=== PATIENT | male | born 1980 | race Caucasian/White ===

== ENCOUNTER 2016-06-12 11:23 | Emergency (ER) | payer SELFPAY ==
[2016-06-12 11:24] VITALS: BP 126/76; PULSE 83; RESP 12; TEMP 97.6; O2SAT 96
--- NOTE | 2016-06-12 11:58 | PD ---
HPI Chief Complaint: GI Complaint Time Seen by Provider: 11:57 Travel History International Travel<30 days: No Contact w/Intl Traveler<30days: No Traveled to known affect area: No History of Present Illness HPI 35-year-old male who states he has no significant medical history, presents to emergency department for evaluation of eh red blood in stool. Patient states that it has happened on and off but yesterday when he had a bowel movement the water was completely red. Denies any trauma. States that he does not have anal intercourse. No history of hemorrhoids. He has not yet had a bowel movement today. Has had some lower abdominal pain as well as epigastric pain. He has felt nauseous without vomiting. Chills without fever. No other recent illnesses, fever, or chills. He has no other symptoms to report. [facility] Past Medical History Medical History: Denies Significant Hx Social History Alcohol Use: No Tobacco Use: No Substance Use: No Allergies-Medications (Allergen,Severity, Reaction): Coded Allergies: Codeine (Verified Allergy, Severe, Anaphylaxis, 06/12/16) Reported Meds & Prescriptions Reported Meds & Active Scripts Active Zantac (Ranitidine HCl) 150 Mg Tab 150 Mg PO BID Review of Systems Except as stated in HPI: all other systems reviewed are Neg Physical Exam Narrative GENERAL: Well-nourished male patient, in no acute distress SKIN: Warm and dry. HEAD: Atraumatic. Normocephalic. EYES: Pupils equal and round. No scleral icterus. No injection or drainage. ENT: No nasal bleeding or discharge. Mucous membranes pink and moist. NECK: Trachea midline. No JVD. CARDIOVASCULAR: Regular rate and rhythm. No murmur appreciated. RESPIRATORY: No accessory muscle use. Clear to auscultation. Breath sounds equal bilaterally. GASTROINTESTINAL: Abdomen soft, nondistended. Slight epigastric and periumbilical tenderness to palpation. Hepatic and splenic margins not palpable. RECTAL EXAM: No masses or tenderness, stool is brown. MUSCULOSKELETAL: No obvious deformities. No clubbing. No cyanosis. No edema. NEUROLOGICAL: Awake and alert. No obvious cranial nerve deficits. Motor grossly within normal limits. Normal speech. PSYCHIATRIC: Appropriate mood and affect; insight and judgment normal. Data Data Last Documented VS Vital Signs Date Time Temp Pulse Resp B/P Pulse Ox O2 Delivery O2 Flow Rate FiO2 06/12/16 13:34 58 18 127/78 98 Room Air 06/12/16 11:24 97.6 Orders Complete Blood Count With Diff (06/12/16 11:56) Comprehensive Metabolic Panel (06/12/16 11:56) Lipase (06/12/16 11:56) Prothrombin Time / Inr (Pt) (06/12/16 11:56) Act Partial Throm Time (Ptt) (06/12/16 11:56) Urinalysis - C+S If Indicated (06/12/16 11:56) Electrocardiogram (06/12/16 11:56) Type And Screen (06/12/16 11:56) Troponin I (06/12/16 13:27) Labs Laboratory Tests Test 06/12/16 12:05 White Blood Count 10.7 TH/MM3 Red Blood Count 5.23 MIL/MM3 Hemoglobin 16.1 GM/DL Hematocrit 46.2 % Mean Corpuscular Volume 88.2 FL Mean Corpuscular Hemoglobin 30.7 PG Mean Corpuscular Hemoglobin 34.8 % Concent Red Cell Distribution Width 13.7 % Platelet Count 181 TH/MM3 Mean Platelet Volume 8.4 FL Neutrophils (%) (Auto) 62.2 % Lymphocytes (%) (Auto) 28.4 % Monocytes (%) (Auto) 5.8 % Eosinophils (%) (Auto) 2.9 % Basophils (%) (Auto) 0.7 % Neutrophils # (Auto) 6.6 TH/MM3 Lymphocytes # (Auto) 3.0 TH/MM3 Monocytes # (Auto) 0.6 TH/MM3 Eosinophils # (Auto) 0.3 TH/MM3 Basophils # (Auto) 0.1 TH/MM3 CBC Comment DIFF FINAL Differential Comment Prothrombin Time 10.7 SEC Prothromb Time International 1.0 RATIO Ratio Activated Partial 28.8 SEC Thromboplast Time Urine Color YELLOW Urine Turbidity HAZY Urine pH 5.5 Urine Specific [place] 1.010 Urine Protein TRACE mg/dL Urine Glucose (UA) NEG mg/dL Urine Ketones NEG mg/dL Urine Occult Blood NEG Urine Nitrite NEG Urine Bilirubin NEG Urine Urobilinogen LESS THAN 2.0 MG/DL Urine Leukocyte Esterase NEG Urine RBC LESS THAN 1 /hpf Urine WBC 1 /hpf Urine Squamous Epithelial <1 /hpf Cells Urine Bacteria RARE /hpf Urine Mucus FEW /lpf Urine Sperm RARE Microscopic Urinalysis Comment CULT NOT INDICATED Sodium Level 139 MEQ/L Potassium Level 4.2 MEQ/L Chloride Level 102 MEQ/L Carbon Dioxide Level 28.5 MEQ/L Anion Gap 9 MEQ/L Blood Urea Nitrogen 13 MG/DL Creatinine 1.13 MG/DL Estimat Glomerular Filtration 75 ML/MIN Rate Random Glucose 80 MG/DL Calcium Level 8.9 MG/DL Total Bilirubin 0.4 MG/DL Aspartate Amino Transf 48 U/L (AST/SGOT) Alanine Aminotransferase 65 U/L (ALT/SGPT) Alkaline Phosphatase 104 U/L Troponin I LESS THAN 0.02 NG/ML Total Protein 7.4 GM/DL Albumin 4.1 GM/DL Lipase 170 U/L Blood Type A NEGATIVE Antibody Screen NEGATIVE Blood Bank Comment MDM Medical Decision Making Medical Screen Exam Complete: Yes Emergency Medical Condition: Yes Medical Record Reviewed: Yes Differential Diagnosis Hemorrhoid bleeding versus fistula versus fissure versus GI bleed Narrative Course 35-year-old male presents to emergency department for evaluation. Patient appears without distress. Workup was initiated in triage. Once a medical bed becomes available, patient will be transferred and Oralia seemed without provider. Heme a prompt was complete in triage. Stool is brown with streaks of positive identified on the exam [facility] Point of Care Internal Pos. & Neg. Controls: Passed Fecal Specimen Occult Blood: Positive Scripts Ranitidine (Zantac)150 Mg Apq490 Mg PO BID #60 TAB Ref 0 Prov:Akosua Harris 06/12/16 Condition: Stable Samantha Trammell Jun 12, 2016 11:57
[2016-06-12 12:28] LABS: AUTOMATED NEUTROPHIL # 6.6 TH/MM3 (1.8-7.7); BASOPHIL # 0.1 TH/MM3 (0-0.2); BASOPHIL % 0.7 % (0.0-2.0); EOSINOPHIL # 0.3 TH/MM3 (0-0.4); EOSINOPHIL % 2.9 % (0.0-4.0); HEMATOCRIT 46.2 % (39.0-51.0); HEMO FLAGS DIFF FINAL; LYMPH % 28.4 % (9.0-44.0); MEAN CELL VOLUME 88.2 FL (80.0-100.0); MEAN CORPUSCULAR HEMOGLOBIN 30.7 PG (27.0-34.0); MEAN CORPUSCULAR HGB CONC 34.8 % (32.0-36.0); MONO % 5.8 % (0.0-8.0); NEUT % 62.2 % (16.0-70.0); PLATELET COUNT 181 TH/MM3 (150-450); RED BLOOD COUNT 5.23 MIL/MM3 (4.50-5.90); RED CELL DISTRIBUTION WIDTH 13.7 % (11.6-17.2); WHITE BLOOD COUNT 10.7 TH/MM3 (4.0-11.0)
[2016-06-12 12:35] LABS: BACTERIA, URINE RARE /hpf; BLOOD, URINE NEG (NEG); GLUCOSE,URINE NEG (NEG); KETONE, URINE NEG (NEG); MUCUS URINE FEW /lpf (OCC); NITRITE,URINE NEG (NEG); PH, URINE 5.5 (5.0-8.5); SQUAMOUS EPITHELIAL CELL URINE <1 /hpf (0-5); URINE COLOR YELLOW (YELLW/STRAW)
[2016-06-12 12:36] LABS: COMMENT (UR) CULT NOT INDICATED; CULTURE IF INDICATED CULT NOT INDICATED
[2016-06-12 12:39] LABS: APTT (PATIENT) 28.8 SEC (24.3-30.1); PROTHROMBIN TIME - PATIENT 10.7 SEC (9.8-11.6)
--- NOTE | 2016-06-12 12:42 | PD ---
Physical Exam Date Seen by Provider: Jun 12, 2016 Time Seen by Provider: 12:38 Narrative 35-year-old male presents to the emergency department for evaluation of bright red blood in history. Patient was initially seen in triage and was transferred to medical pot. Patient reports bright red blood in his stool for 2 weeks. He states this started with a streak on his toilet taper when he wipes. However, states that yesterday the full was bright red after having a bowel movement. He has not had a bowel movement since. Patient does report mild epigastric tenderness. He reports a history of inguinal hernia surgery, but no other abdominal surgeries or chronic problems. Patient denies any fevers. He does state that he has vomited for the past 3 days. He states he ate 2 bowls of cereal this morning was able to keep it down without difficulty. However, he then ate a red velvet Inspector Plating cake and vomited out the hose sprayer take. He denies any chronic medical problems or taking any prescribed medications. Rectal exam was done in triage. GENERAL: Well-developed well-nourished male patient, ambulatory. Afebrile. SKIN: Warm and dry. HEAD: Normocephalic. Atraumatic. EYES: No scleral icterus. No injection or drainage. NECK: Supple, trachea midline. No JVD or lymphadenopathy. CARDIOVASCULAR: Regular rate and rhythm without murmurs, gallops, or rubs. RESPIRATORY: Breath sounds equal bilaterally. No accessory muscle use. Lungs sounds are clear to auscultation. GASTROINTESTINAL: Abdomen soft and nondistended. Mild epigastric tenderness to palpation. MUSCULOSKELETAL: No cyanosis, or edema. BACK: Nontender without obvious deformity. No CVA tenderness. Data Data Last Documented VS Vital Signs Date Time Temp Pulse Resp B/P Pulse Ox O2 Delivery O2 Flow Rate FiO2 06/12/16 13:34 58 18 127/78 98 Room Air 06/12/16 11:24 97.6 Orders Complete Blood Count With Diff (06/12/16 11:56) Comprehensive Metabolic Panel (06/12/16 11:56) Lipase (06/12/16 11:56) Prothrombin Time / Inr (Pt) (06/12/16 11:56) Act Partial Throm Time (Ptt) (06/12/16 11:56) Urinalysis - C+S If Indicated (06/12/16 11:56) Electrocardiogram (06/12/16 11:56) Type And Screen (06/12/16 11:56) Troponin I (06/12/16 13:27) Labs Laboratory Tests Test 06/12/16 12:05 White Blood Count 10.7 TH/MM3 Red Blood Count 5.23 MIL/MM3 Hemoglobin 16.1 GM/DL Hematocrit 46.2 % Mean Corpuscular Volume 88.2 FL Mean Corpuscular Hemoglobin 30.7 PG Mean Corpuscular Hemoglobin 34.8 % Concent Red Cell Distribution Width 13.7 % Platelet Count 181 TH/MM3 Mean Platelet Volume 8.4 FL Neutrophils (%) (Auto) 62.2 % Lymphocytes (%) (Auto) 28.4 % Monocytes (%) (Auto) 5.8 % Eosinophils (%) (Auto) 2.9 % Basophils (%) (Auto) 0.7 % Neutrophils # (Auto) 6.6 TH/MM3 Lymphocytes # (Auto) 3.0 TH/MM3 Monocytes # (Auto) 0.6 TH/MM3 Eosinophils # (Auto) 0.3 TH/MM3 Basophils # (Auto) 0.1 TH/MM3 CBC Comment DIFF FINAL Differential Comment Prothrombin Time 10.7 SEC Prothromb Time International 1.0 RATIO Ratio Activated Partial 28.8 SEC Thromboplast Time Urine Color YELLOW Urine Turbidity HAZY Urine pH 5.5 Urine Specific [place] 1.010 Urine Protein TRACE mg/dL Urine Glucose (UA) NEG mg/dL Urine Ketones NEG mg/dL Urine Occult Blood NEG Urine Nitrite NEG Urine Bilirubin NEG Urine Urobilinogen LESS THAN 2.0 MG/DL Urine Leukocyte Esterase NEG Urine RBC LESS THAN 1 /hpf Urine WBC 1 /hpf Urine Squamous Epithelial <1 /hpf Cells Urine Bacteria RARE /hpf Urine Mucus FEW /lpf Urine Sperm RARE Microscopic Urinalysis Comment CULT NOT INDICATED Sodium Level 139 MEQ/L Potassium Level 4.2 MEQ/L Chloride Level 102 MEQ/L Carbon Dioxide Level 28.5 MEQ/L Anion Gap 9 MEQ/L Blood Urea Nitrogen 13 MG/DL Creatinine 1.13 MG/DL Estimat Glomerular Filtration 75 ML/MIN Rate Random Glucose 80 MG/DL Calcium Level 8.9 MG/DL Total Bilirubin 0.4 MG/DL Aspartate Amino Transf 48 U/L (AST/SGOT) Alanine Aminotransferase 65 U/L (ALT/SGPT) Alkaline Phosphatase 104 U/L Troponin I LESS THAN 0.02 NG/ML Total Protein 7.4 GM/DL Albumin 4.1 GM/DL Lipase 170 U/L Blood Type A NEGATIVE Antibody Screen NEGATIVE Blood Bank Comment [facility] Medical Record Reviewed: Yes Supervised Visit with NEGRO: No Differential Diagnosis Hemorrhoids versus lower GI bleed versus pancreatitis Narrative Course 35-year-old male presents to the emergency department for evaluation of right blood per his rectum for 2 weeks, worsening yesterday. Patient appears well on exam. EKG is ordered and pending. CBC, CMP, lipase, PTT, PTT/INR, troponin UA are ordered and pending. EKG shows sinus bradycardia, heart rate 55. This was read and interpreted by my attending physician, Dr. Chou, and appears to have early repolarizationn. CBC is completely unremarkable with a hemoglobin of 16.1, hematocrit 46.2. Coags are unremarkable. UA shows no evidence of acute infection. CMP shows no acute abnormality. Lipase is 170. Troponin is less than 0.02. Physical exam and laboratory findings are reassuring. Patient is instructed to follow-up with a crop quantitative geneticist for possible colonoscopy. Patient is agreeable. Patient will be discharged with a prescription for Zantac. Diagnosis Primary Impression: Bright red blood per rectum Referrals: Cause Analyst call for appointment Patient Instructions: General Instructions, Rectal Bleeding (ED) Departure Forms: Tests/Procedures, Work Release Enter return to work date: Jun 14, 2016 Additional Instruction: Follow-up with a crop quantitative geneticist. Take Zantac as directed. Return to the emergency department for any acute worsening of symptoms. Med/Other Pt SpecificInfo: Prescription(s) given Scripts Ranitidine (Zantac)150 Mg Pcn521 Mg PO BID #60 TAB Ref 0 Prov:Akosua Harris 06/12/16 Disposition: 01 DISCHARGE HOME Condition: Stable Akosua Harris Jun 12, 2016 12:42
[2016-06-12 13:11] LABS: ALKALINE PHOSPHATASE 104 U/L (45-117); ALT (GPT) 65 U/L (12-78); ANION GAP 9 MEQ/L (5-15); BICARBONATE 28.5 MEQ/L (21.0-32.0); BLOOD UREA NITROGEN 13 MG/DL (7-18); CHLORIDE 102 MEQ/L (98-107); GLOMERULAR FILTRATION RATE 75 ML/MIN (>89); SODIUM (NA) 139 MEQ/L (136-145); TOTAL BILIRUBIN ADULT 0.4 MG/DL (0.2-1.0)
[2016-06-12 13:17] LABS: AST (GOT) 48 U/L (15-37); POTASSIUM 4.2 MEQ/L (3.5-5.1)
[2016-06-12 13:34] VITALS: BP 127/78; PULSE 58; RESP 18; O2SAT 98
[2016-06-12] MEDS ORDERED: ZANT150T2 PO (14:53)
--- NOTE | 2016-06-13 15:33 | EKG ---
Date Performed: 06/12/2016 Time Performed: 13:19:59 PTAGE: 35 years EKG: SINUS BRADYCARDIA ST ELEVATION, CONSIDER INFERIOR INJURY ACUTE MA NO PREVIOUS TRACING DOCTOR: Van Irby Interpretating Date/Time 06/13/2016 15:32:18
== END 2016-06-12 15:39 | disposition home or self-care (01) ==
LOC: NEPA 11:23
DX: K62.5 Hemorrhage of anus and rectum (principal); R00.1 Bradycardia, unspecified; R10.13 Epigastric pain
CPT/HCPCS: 80053; 81001; 83690; 84484; 85025; 85610; 85730; 86850; 86900; 86901; 93005

== ENCOUNTER 2016-06-14 12:59 | Emergency (ER) | payer SELFPAY ==
[~2016-06-14] VITALS: Ht 172.7 cm; Wt 84.0 kg
[~2016-06-14 12:59] MED LIST: ZANT150T2 PO
[2016-06-14 13:01] VITALS: BP 129/71; PULSE 78; RESP 20; TEMP 97.9; O2SAT 97
--- NOTE | 2016-06-14 14:27 | PD ---
HPI Chief Complaint: GI Complaint Time Seen by Provider: 14:26 Travel History International Travel<30 days: No Contact w/Intl Traveler<30days: No Traveled to known affect area: No History of Present Illness HPI 35-year-old male presents to the ED for evaluation of episodic nausea and vomiting and rectal bleeding. Patient was seen in this ED with same complaint 2 days ago. At that time he was prescribed Zantac, instructed to follow up with the slot operations manager. The patient states that he has been unable to afford the Zantac and had an episode nausea and nonbloody vomiting this morning. He also requests a work note, stating that he has to miss work in order to coordinate his care. PFSH Past Surgical History Abdominal Surgery: Yes (inguinal hernia sx) Social History Alcohol Use: No Tobacco Use: No Substance Use: No Allergies-Medications (Allergen,Severity, Reaction): Coded Allergies: Codeine (Verified Allergy, Severe, Anaphylaxis, 06/12/16) Reported Meds & Prescriptions Reported Meds & Active Scripts Active Zantac (Ranitidine HCl) 150 Mg Tab 150 Mg PO BID Review of Systems Except as stated in HPI: all other systems reviewed are Neg Physical Exam Narrative GENERAL: Well-nourished, well-developed white male in no acute distress. SKIN: Warm and dry. HEAD: Normocephalic. EYES: No scleral icterus. No injection or drainage. NECK: Supple, trachea midline. No JVD or lymphadenopathy. CARDIOVASCULAR: Regular rate and rhythm without murmurs, gallops, or rubs. RESPIRATORY: Breath sounds clear and equal bilaterally. No accessory muscle use. GASTROINTESTINAL: Abdomen soft, nondistended. Mild epigastric tenderness. Active bowel sounds. MUSCULOSKELETAL: No cyanosis, or edema. Patient is ambulatory, moves easily from sitting to lying down positions. BACK: Nontender without obvious deformity. No CVA tenderness. Data Data Last Documented VS Vital Signs Date Time Temp Pulse Resp B/P Pulse Ox O2 Delivery O2 Flow Rate FiO2 06/14/16 13:01 97.9 78 20 129/71 97 Room Air Orders Ranitidine (Zantac) (06/14/16 14:45) Famotidine (Pepcid) (06/14/16 15:15) MDM Medical Decision Making Medical Screen Exam Complete: Yes Emergency Medical Condition: Yes Differential Diagnosis GERD versus hemorrhoids versus noncompliance versus other Narrative Course 35-year-old male presents to the ED for evaluation of episodic nausea and vomiting and rectal bleeding. Patient was seen in this ED with same complaint 2 days ago. At that time he was prescribed Zantac, instructed to follow up with the slot operations manager. The patient states that he has been unable to afford the Zantac and had an episode nausea and nonbloody vomiting this morning. He also requests a work note, stating that he has to miss work in order to coordinate his care. Vitals reviewed. Physical exam reveals a nontoxic-appearing white male in no acute distress. Mild tenderness to palpation in the epigastric region, physical exam is otherwise unremarkable. Review of the records reveals patient had a full workup 2 days ago which revealed no emergent condition. Patient is been noncompliant with his medications. He was administered a dose of Pepcid. Previous discharge instructions were reinforced. He is instructed to follow-up with the slot operations manager. He indicated understanding of the instructions. He is stable and discharged home. Diagnosis Primary Impression: Noncompliance Additional Impression: Nausea and vomiting Qualified Code: R11.2 - Non-intractable vomiting with nausea, unspecified vomiting type Referrals: [employer] Displays Analyst Patient Instructions: Diet for Stomach Ulcers and Gastritis (ED), Gastroesophageal Reflux Disease (ED), General Instructions Additional Instructions: Take the medication as previously prescribed. Follow-up with the slot operations manager as discussed. Return to the ED for any urgent or emergent medical condition. Disposition: 01 DISCHARGE HOME Condition: Stable Lisset Hernandez Jun 14, 2016 14:27
[2016-06-14] MEDS ORDERED: RANITIDINE HCL 150 MG TAB PO ONE (14:45)
[2016-06-14] MEDS ORDERED: FAMOTIDINE 20 MG TAB PO ONE (15:15)
== END 2016-06-14 15:33 | disposition home or self-care (01) ==
LOC: NETRI 12:59
DX: R11.2 Nausea with vomiting, unspecified (principal); K62.5 Hemorrhage of anus and rectum; Z91.14 Patient's other noncompliance with medication regimen
CPT/HCPCS: 99283

== ENCOUNTER 2016-06-17 06:53 | Emergency (ER) | payer SELFPAY ==
[~2016-06-17] VITALS: Ht 172.7 cm; Wt 83.0 kg
[2016-06-17 06:54] VITALS: BP 128/68; PULSE 70; RESP 16; TEMP 97.8; O2SAT 96
[2016-06-17 07:06] VITALS: BP 127/80; PULSE 81; RESP 16; TEMP 98.1; O2SAT 96
[2016-06-17 07:12] VITALS: BP 127/80; PULSE 75; RESP 16; O2SAT 98
[2016-06-17] MEDS ORDERED: SODIUM CHLOR 0.9% 1000 ML INJ 1,000 ML IV SCH (07:18)
--- NOTE | 2016-06-17 07:27 | PD ---
HPI Chief Complaint: GI Complaint Time Seen by Provider: 07:05 Travel History International Travel<30 days: No Contact w/Intl Traveler<30days: No Traveled to known affect area: No History of Present Illness HPI This is a 35-year-old man who presents to the emergency department complaining of about 6 days of epigastric abdominal pain, associated with cramps and nausea. His also had some bright red blood in his stool. He has been seen in emergency department 2 times for this. Was given a prescription for ranitidine which he states he can't fill until Saturday. Over the past 2 days he also started to develop loose stools with some continued intermittent bright red blood. He states also had some dark stools. Only abdominal surgical history as hernia repair. Denies alcohol use. No recent NSAID use, was using them heavily in the fall for an orthopedic injury. Denies any other past medical history. History Past Medical History Narrative Medical Patient denies any past medical history Influenza Vaccination: No Social History Alcohol Use: No Tobacco Use: Yes (1 PPD) Allergies-Medications (Allergen,Severity, Reaction): Coded Allergies: Codeine (Verified Allergy, Severe, Anaphylaxis, 06/17/16) Reported Meds & Prescriptions Reported Meds & Active Scripts Active Zantac (Ranitidine HCl) 150 Mg Tab 150 Mg PO BID Review of Systems Except as stated in HPI: all other systems reviewed are Neg Physical Exam Narrative GENERAL: 35-year-old man, no acute distress. SKIN: Warm and dry. NECK: Trachea midline. No JVD. CARDIOVASCULAR: Regular rate and rhythm. No murmur appreciated. RESPIRATORY: No accessory muscle use. Clear to auscultation. Breath sounds equal bilaterally. GASTROINTESTINAL: Normal contour in appearance. Minimal epigastric tenderness. Negative Shafer's. No rebound or guarding. MUSCULOSKELETAL: No obvious deformities. No edema. NEUROLOGICAL: Awake and alert. No obvious cranial nerve deficits. Motor grossly within normal limits. Normal speech. PSYCHIATRIC: Appropriate mood and affect; insight and judgment normal. Data Data Last Documented VS Vital Signs Date Time Temp Pulse Resp B/P Pulse Ox O2 Delivery O2 Flow Rate FiO2 06/17/16 08:26 69 15 101/62 98 Room Air 06/17/16 07:06 98.1 Orders Complete Blood Count With Diff (06/17/16 07:18) Comprehensive Metabolic Panel (06/17/16 07:18) Lipase (06/17/16 07:18) Iv Access Insert/Monitor (06/17/16 07:18) Ondansetron Inj (Zofran Inj) (06/17/16 07:30) Sodium Chlor 0.9% 1000 Ml Inj (Ns 1000 M (06/17/16 07:18) Sodium Chloride 0.9% Flush (Ns Flush) (06/17/16 07:30) Famotidine Inj (Pepcid Inj) (06/17/16 07:30) Al-Mag Hy-Si 40-40-4 Mg/Ml Liq (Mag-Al P (06/17/16 07:30) Lidocaine 2% Viscous (Xylocaine 2% Visco (06/17/16 07:30) Famotidine (Pepcid) (06/17/16 07:30) Labs Laboratory Tests Test 06/17/16 07:22 White Blood Count 14.4 TH/MM3 Red Blood Count 5.34 MIL/MM3 Hemoglobin 16.3 GM/DL Hematocrit 46.9 % Mean Corpuscular Volume 87.8 FL Mean Corpuscular Hemoglobin 30.4 PG Mean Corpuscular Hemoglobin 34.7 % Concent Red Cell Distribution Width 13.6 % Platelet Count 184 TH/MM3 Mean Platelet Volume 8.5 FL Neutrophils (%) (Auto) 75.3 % Lymphocytes (%) (Auto) 17.6 % Monocytes (%) (Auto) 5.6 % Eosinophils (%) (Auto) 1.2 % Basophils (%) (Auto) 0.3 % Neutrophils # (Auto) 10.8 TH/MM3 Lymphocytes # (Auto) 2.5 TH/MM3 Monocytes # (Auto) 0.8 TH/MM3 Eosinophils # (Auto) 0.2 TH/MM3 Basophils # (Auto) 0.0 TH/MM3 CBC Comment DIFF FINAL Differential Comment Sodium Level 138 MEQ/L Potassium Level 4.0 MEQ/L Chloride Level 102 MEQ/L Carbon Dioxide Level 31.0 MEQ/L Anion Gap 5 MEQ/L Blood Urea Nitrogen 19 MG/DL Creatinine 1.19 MG/DL Estimat Glomerular Filtration 70 ML/MIN Rate Random Glucose 93 MG/DL Calcium Level 9.2 MG/DL Total Bilirubin 0.4 MG/DL Aspartate Amino Transf 33 U/L (AST/SGOT) Alanine Aminotransferase 73 U/L (ALT/SGPT) Alkaline Phosphatase 94 U/L Total Protein 7.6 GM/DL Albumin 4.3 GM/DL Lipase 150 U/L [facility] Medical Decision Making Medical Screen Exam Complete: Yes Emergency Medical Condition: Yes Interpretation(s) LABS: CBC remarkable for mild leukocytosis. Normal hemoglobin. CMP remarkable for minimally elevated BUN, otherwise unremarkable Lipase normal Differential Diagnosis Gastritis, peptic ulcer disease, pancreatitis, hepatobiliary disease, enteritis , GI bleed, other Narrative Course Medical decision making 35-year-old man with persistent epigastric abdominal pain with some vomiting and diarrhea, concern for dark stools or bright red blood per rectum. Light brown stool on rectal exam, guaiac negative. We'll check labs, continue to recommend the patient take antacid medicines as prescribed. Encouraged to buy a small box [id number] generic medicine until he is able to fill the prescription. If symptoms continue may need specialty follow-up. Despite his complaints, patient looks generally well. He has benign abdominal exam. We'll recheck labs look for evidence of anemia or GI bleed. Outpatient follow-up. Diagnosis Primary Impression: Gastritis Qualified Code: K29.00 - Acute gastritis, presence of bleeding unspecified, unspecified gastritis type Patient Instructions: General Instructions Additional Instructions: Take ranitidine as prescribed. You can buy a small package of [id number] generic ranitidine if you're unable to afford the full prescription. Continue to avoid spicy foods or acidic foods. Follow-up with a primary physician first available appointment. Med/Other Pt SpecificInfo: No Change to Meds Disposition: 01 DISCHARGE HOME Condition: Anil Jones MD Jun 17, 2016 07:27
[2016-06-17] MEDS ORDERED: LIDOCAINE VISCOUS 2% SOLN 15 ML UDC PO ONE (07:30)
[2016-06-17] MEDS ORDERED: FAMOTIDINE 20 MG/2 ML VIAL IV PUSH ONE (07:30)
[2016-06-17] MEDS ORDERED: ONDANSETRON HCL 4 MG/2 ML VIAL IVP ONE (07:30)
[2016-06-17] MEDS ORDERED: ALUMINUM/MAGNESIUM/SIMETH 30 ML CUP PO ONE (07:30)
[2016-06-17] MEDS ORDERED: FAMOTIDINE 20 MG TAB PO ONE (07:30)
[2016-06-17] MEDS ORDERED: SODIUM CHLORIDE 0.9% FLUSH 5 ML FLUSH IVF PRN (07:30)
[2016-06-17 07:48] LABS: AUTOMATED NEUTROPHIL # 10.8 TH/MM3 (1.8-7.7); BASOPHIL % 0.3 % (0.0-2.0); EOSINOPHIL # 0.2 TH/MM3 (0-0.4); EOSINOPHIL % 1.2 % (0.0-4.0); HEMATOCRIT 46.9 % (39.0-51.0); HEMO FLAGS DIFF FINAL; LYMPH % 17.6 % (9.0-44.0); LYMPHOCYTE # 2.5 TH/MM3 (1.0-4.8); MEAN CELL VOLUME 87.8 FL (80.0-100.0); MEAN CORPUSCULAR HEMOGLOBIN 30.4 PG (27.0-34.0); MEAN CORPUSCULAR HGB CONC 34.7 % (32.0-36.0); MONO % 5.6 % (0.0-8.0); NEUT % 75.3 % (16.0-70.0); PLATELET COUNT 184 TH/MM3 (150-450); RED BLOOD COUNT 5.34 MIL/MM3 (4.50-5.90); RED CELL DISTRIBUTION WIDTH 13.6 % (11.6-17.2); WHITE BLOOD COUNT 14.4 TH/MM3 (4.0-11.0)
[2016-06-17 08:01] LABS: ALT (GPT) 73 U/L (12-78); ANION GAP 5 MEQ/L (5-15); AST (GOT) 33 U/L (15-37); BLOOD UREA NITROGEN 19 MG/DL (7-18); CHLORIDE 102 MEQ/L (98-107); GLOMERULAR FILTRATION RATE 70 ML/MIN (>89); SODIUM (NA) 138 MEQ/L (136-145)
[2016-06-17 08:03] LABS: ALKALINE PHOSPHATASE 94 U/L (45-117); TOTAL BILIRUBIN ADULT 0.4 MG/DL (0.2-1.0)
[2016-06-17 08:26] VITALS: BP 101/62; PULSE 69; RESP 15; O2SAT 98
== END 2016-06-17 09:33 | disposition home or self-care (01) ==
LOC: NEPC 06:53
DX: K29.00 Acute gastritis without bleeding (principal); R10.13 Epigastric pain; R11.0 Nausea; R19.7 Diarrhea, unspecified; K62.5 Hemorrhage of anus and rectum; R19.5 Other fecal abnormalities; F17.200 Nicotine dependence, unspecified, uncomplicated
CPT/HCPCS: 80053; 83690; 85025; 96361; 96374; 99284; J2405; J7030